=== PATIENT | male | born 1975 | race Caucasian/White ===

== ENCOUNTER 2016-09-08 | Emergency (ER) | payer MEDICARE, MEDICAID ==
[2016-09-08] MEDS ORDERED: WELLBUTRIN XL300 M3 PO (17:21)
[2016-09-08] MEDS ORDERED: DEPAKOTE ER500 M1 PO ×2 (17:22)
[2016-09-08] MEDS ORDERED: FLONASE ALLERG9.9 ML (17:22)
[2016-09-08] MEDS ORDERED: IBUPROFEN800 M1 PO ×2 (17:23→19:09)
[2016-09-08] MEDS ORDERED: DEPAKOTE250 M1 PO (19:09)
== END 2016-09-08 20:10 ==
DX: I86.1 Scrotal varices (principal)